=== PATIENT | female | born 1970 | race American Indian/Alaskan Native ===

== ENCOUNTER 2017-03-14 09:04 | Emergency (ER) | payer SELFPAY ==
[2017-03-14 10:17] LABS: Urine Drugs of Abuse Note Disclamer
[2017-03-14 10:35] LABS: Bacteria,Urine 1+ /HPF (Negative); Bilirubin,Urine NEG (Negative); Blood,Urine NEG (Negative); Ketones,Urine 20 mg/dL (Negative); Leukocyte Esterase,Urine NEG (Negative); Mucus,Urine FEW /HPF; Nitrite,Urine NEG (Negative); Urobilinogen,Urine < 2.0 mg/dL (<2.0)
[2017-03-14 10:39] LABS: Basophils % (Auto) 0.4 % (0.0-1.8); Eosinophils % (Auto) 1.3 % (0.0-4.3); Hematocrit 36.2 % (30.3-42.9); Hemoglobin 12.8 gm/dl (10.1-14.3); Mean Corpuscular HGB Conc 35 % (30-34); Mean Corpuscular Hemoglobin 32 pg (28-32); Mean Corpuscular Volume 90 fl (79-97); Platelet Count 276 K/mm3 (140-440); Red Blood Count 4.03 M/mm3 (3.65-5.03); Red Cell Distribution Width 13.9 % (13.2-15.2); White Blood Count 6.3 K/mm3 (4.5-11.0)
[2017-03-14 10:47] LABS: Anion Gap 16 mmol/L; BUN/Creatinine Ratio 9; Blood Urea Nitrogen 8 mg/dL (7-17); Calcium 8.9 mg/dL (8.4-10.2); Carbon Dioxide 25 mmol/L (22-30); Chloride 100.9 mmol/L (98-107); Glucose 94 mg/dL (65-100); Potassium 3.9 mmol/L (3.6-5.0); Sodium 138 mmol/L (137-145)
--- NOTE | 2017-03-14 11:31 | Emergency Department Report ---
HPI - General Chief Complaint: Psych Time Seen by Provider: 03/14/17 11:18 - HPI HPI: Room 9 The patient is a 46-year-old female presenting with a chief complaint of suicidal ideation. The patient stated for one week she has "felt like killing myself." When asked why the patient states she is "going through a lot." Patient's initial plan was to cut her wrists. Patient denies making any attempts to actually harm herself now or in the past. The patient also acknowledges chronic left foot pain from an injury in 2016 and states there has been no change. Location: Mental state Duration: One week Quality: Suicidal Severity: Severe Modifying factors: [see above] Context: [see above] Mode of transportation: Unknown ED Past Medical Hx - Past Medical History Hx Hypertension: Yes Hx Psychiatric Treatment: Yes (depression) - Surgical History Hx Cholecystectomy: Yes Additional Surgical History: cyst removed from right ovary, left oophorectomy. hysterectomy - Family History Family history: no significant - Social History Smoking Status: Never Smoker Substance Use Type: None - Medications Home Medications: Home Medications Medication Instructions Recorded Confirmed Last Taken Type Promethazine [Phenergan TAB] 25 mg PO Q6HR PRN #20 tab 04/21/15 Unknown Rx oxyCODONE /ACETAMINOPHEN [Percocet 1 tab PO Q6HR PRN #20 tablet 04/21/15 Unknown Rx 5/325] Diclofenac Sodium 75 mg PO BID #20 tablet. 10/12/15 Unknown Rx Gabapentin [Neurontin] 100 mg PO Q8HR #30 capsule 06/29/16 Unknown Rx Ibuprofen [Motrin 800 MG tab] 800 mg PO Q8HR PRN #30 tablet 06/29/16 Unknown Rx traMADol [Ultram 50 MG tab] 50 mg PO Q6HR PRN #14 tablet 06/29/16 Unknown Rx ED Review of Systems ROS: Stated complaint: DEPRESSION Other details as noted in HPI Comment: All other systems reviewed and negative Constitutional: denies: chills, fever Eyes: denies: eye pain, eye discharge, vision change ENT: denies: ear pain, throat pain Respiratory: denies: cough, shortness of breath, wheezing Cardiovascular: denies: chest pain, palpitations Endocrine: no symptoms reported Gastrointestinal: denies: abdominal pain, nausea, diarrhea Genitourinary: denies: urgency, dysuria, discharge Musculoskeletal: myalgia Skin: denies: rash, lesions Neurological: denies: headache, weakness, paresthesias Psychiatric: depression, suicidal thoughts Hematological/Lymphatic: denies: easy bleeding, easy bruising Physical Exam - Physical Exam Vital Signs: Vital Signs 03/14/17 03/14/17 03/14/17 09:11 09:25 09:26 Temperature 99.5 F 99.5 F Pulse Rate 89 89 Respiratory 20 20 20 Rate Blood Pressure 125/93 Blood Pressure 125/93 [Left] O2 Sat by Pulse 99 99 99 Oximetry Physical Exam: GENERAL: The patient is well-developed well-nourished female lying on stretcher not appearing to be in acute distress. [] HEENT: Normocephalic. Atraumatic. Extraocular motions are intact. Patient has moist mucous membranes. NECK: Supple. Trachea midline CHEST/LUNGS: Clear to auscultation. There is no respiratory distress noted. HEART/CARDIOVASCULAR: Regular. There is no tachycardia. There is no gallop rub or murmur. ABDOMEN: Abdomen is soft, nontender. Patient has normal bowel sounds. There is no abdominal distention. SKIN: There is no rash. There is no edema. There is no diaphoresis. NEURO: The patient is awake, alert, and oriented. The patient is cooperative. The patient has normal speech MUSCULOSKELETAL: There is no evidence of acute injury. ED Course Vital Signs 03/14/17 03/14/17 03/14/17 09:11 09:25 09:26 Temperature 99.5 F 99.5 F Pulse Rate 89 89 Respiratory 20 20 20 Rate Blood Pressure 125/93 Blood Pressure 125/93 [Left] O2 Sat by Pulse 99 99 99 Oximetry ED Medical Decision Making - Lab Data Result diagrams: 03/14/17 10:16 03/14/17 10:16 Laboratory Tests 03/14/17 03/14/17 03/14/17 09:46 09:46 10:16 WBC RBC Hgb Hct MCV MCH MCHC RDW Plt Count Lymph % (Auto) [place] % (Auto) Eos % (Auto) Baso % (Auto) Lymph # [place] # Eos # Baso # Seg Neutrophils % Seg Neutrophils # Sodium 138 Potassium 3.9 Chloride 100.9 Carbon Dioxide 25 Anion Gap 16 BUN 8 Creatinine 0.9 Estimated GFR > 60 BUN/Creatinine Ratio 9 Glucose 94 Calcium 8.9 Urine Color Yellow Urine Turbidity Clear Urine pH 7.0 Ur Specific [place] 1.013 Urine Protein 100 mg/dl Urine Glucose (UA) Neg Urine Ketones 20 Urine Blood Neg Urine Nitrite Neg Urine Bilirubin Neg Urine Urobilinogen < 2.0 Ur Leukocyte Esterase Neg Urine WBC (Auto) 1.0 Urine RBC (Auto) 1.0 U Epithel Cells (Auto) 8.0 Urine Bacteria (Auto) 1+ Urine Mucus Few Salicylates Urine Opiates Screen Presumptive negative Urine Methadone Screen Presumptive negative Acetaminophen Ur Barbiturates Screen Presumptive negative Ur Phencyclidine Scrn Presumptive negative Ur Amphetamines Screen Presumptive negative U Benzodiazepines Scrn Presumptive negative Urine Cocaine Screen Presumptive negative U Marijuana (THC) Screen Presumptive negative Drugs of Abuse Note Disclamer Plasma/Serum Alcohol 03/14/17 03/14/17 03/14/17 10:16 10:16 10:16 WBC 6.3 RBC 4.03 Hgb 12.8 Hct 36.2 MCV 90 MCH 32 MCHC 35 H RDW 13.9 Plt Count 276 Lymph % (Auto) 34.4 [place] % (Auto) 5.5 Eos % (Auto) 1.3 Baso % (Auto) 0.4 Lymph # 2.2 [place] # 0.4 Eos # 0.1 Baso # 0.0 Seg Neutrophils % 58.4 Seg Neutrophils # 3.7 Sodium Potassium Chloride Carbon Dioxide Anion Gap BUN Creatinine Estimated GFR BUN/Creatinine Ratio Glucose Calcium Urine Color Urine Turbidity Urine pH Ur Specific [place] Urine Protein Urine Glucose (UA) Urine Ketones Urine Blood Urine Nitrite Urine Bilirubin Urine Urobilinogen Ur Leukocyte Esterase Urine WBC (Auto) Urine RBC (Auto) U Epithel Cells (Auto) Urine Bacteria (Auto) Urine Mucus Salicylates < 0.3 L Urine Opiates Screen Urine Methadone Screen Acetaminophen Ur Barbiturates Screen Ur Phencyclidine Scrn Ur Amphetamines Screen U Benzodiazepines Scrn Urine Cocaine Screen U Marijuana (THC) Screen Drugs of Abuse Note Plasma/Serum Alcohol < 0.01 03/14/17 10:16 WBC RBC Hgb Hct MCV MCH MCHC RDW Plt Count Lymph % (Auto) [place] % (Auto) Eos % (Auto) Baso % (Auto) Lymph # [place] # Eos # Baso # Seg Neutrophils % Seg Neutrophils # Sodium Potassium Chloride Carbon Dioxide Anion Gap BUN Creatinine Estimated GFR BUN/Creatinine Ratio Glucose Calcium Urine Color Urine Turbidity Urine pH Ur Specific [place] Urine Protein Urine Glucose (UA) Urine Ketones Urine Blood Urine Nitrite Urine Bilirubin Urine Urobilinogen Ur Leukocyte Esterase Urine WBC (Auto) Urine RBC (Auto) U Epithel Cells (Auto) Urine Bacteria (Auto) Urine Mucus Salicylates Urine Opiates Screen Urine Methadone Screen Acetaminophen < 15.0 Ur Barbiturates Screen Ur Phencyclidine Scrn Ur Amphetamines Screen U Benzodiazepines Scrn Urine Cocaine Screen U Marijuana (THC) Screen Drugs of Abuse Note Plasma/Serum Alcohol - Differential Diagnosis suicidal ideation Critical care attestation.: If time is entered above; I have spent that time in minutes in the direct care of this critically ill patient, excluding procedure time. ED Disposition Clinical Impression: Suicidal ideation Disposition: [id number]/TX-65 PSY HOSP/PSY UNIT Is pt being admited?: No Does the pt Need Aspirin: No Condition: Serious Referrals: PRIMARY CARE [Primary Care Provider] - 3-5 Days Time of Disposition: 11:31 (awaiting acceptance)
[2017-03-14] MEDS ORDERED: MOTRIN PO PRN (11:32)
[2017-03-15 12:26] VITALS: BP 113/76
--- NOTE | 2017-03-15 22:32 | Consultation ---
History of Present Illness - Reason for Consult Reason for consult: SI Medications and Allergies Allergies Allergy/AdvReac Type Severity Reaction Status Date / Time acetaminophen [From Lortab] Allergy Itching Verified 04/21/15 09:03 codeine Allergy Nausea Verified 04/21/15 09:03 hydrocodone bitartrate Allergy Itching Verified 04/21/15 09:03 [From Lortab] shellfish derived Allergy Swelling Verified 04/21/15 09:03 latex AdvReac Rash Verified 04/21/15 09:03 Home Medications Medication Instructions Recorded Confirmed Last Taken Type Promethazine [Phenergan TAB] 25 mg PO Q6HR PRN #20 tab 04/21/15 Unknown Rx oxyCODONE /ACETAMINOPHEN [Percocet 1 tab PO Q6HR PRN #20 tablet 04/21/15 Unknown Rx 5/325] Diclofenac Sodium 75 mg PO BID #20 tablet. 10/12/15 Unknown Rx Gabapentin [Neurontin] 100 mg PO Q8HR #30 capsule 06/29/16 Unknown Rx Ibuprofen [Motrin 800 MG tab] 800 mg PO Q8HR PRN #30 tablet 06/29/16 Unknown Rx traMADol [Ultram 50 MG tab] 50 mg PO Q6HR PRN #14 tablet 06/29/16 Unknown Rx Mental Status Exam - Vital signs Last Vital Signs Temp 98.5 F 03/15/17 10:10 Pulse 88 03/15/17 10:10 Resp 18 03/15/17 14:20 BP 113/76 03/15/17 10:10 Pulse Ox 98 03/15/17 14:20 Results Result Diagrams: 03/14/17 10:16 03/14/17 10:16 All other labs normal. Assessment and Plan Assessment and plan: CHIEF COMPLAINT IN PATIENTS WORDS: HISTORY OF PRESENT ILLNESS: This is a 46-year-old female with no formal PPH who now presents secondary to recent expression of SI. Patient is an employee in the [employer] center and notes expressing SI while breaking down at work. She notes this is associated with her being in chronic pain. PSYCHIATRIC REVIEW OF SYSTEMS: Substance: UDS - Detoxification/Withdrawal: none noted Depression: Withdrawn, isolated, low moods. [place]: no labile moods, not hyperverbal, no flight of ideas Psychosis: no AV, no VH, no paranoia, no grandiosity/erotomania Anxiety/ OCD/ PTSD: denies Suicidality: denies current SI Other Self-Injurious Behavior: none currently, no recent SIB noted Violent/ Aggressive Behavior: none noted CURRENT MEDICATIONS: Per Medication Reconciliation ALLERGIES: acetaminophen, codeine, hydrocodone, shellfish, latex PAST PSYCHIATRIC HISTORY: Inpatient: none Outpatient: has no psychiatrist/therapist Prior Suicide Attempts: unknown Prior Self-Injurious Behaviors: unknown PAST PSYCHIATRIC MEDICATION TRIALS: MEDICAL HISTORY: injury to foot resulting in chronic pain syndrom MENTAL STATUS EXAM: General Appearance: Dressed in hospital gown, in acute distress Sensorium/Consciousness: alert and responding to external stimuli Eye Contact: limited Attitude / Behavior: cooperative, but guarded Psychomotor & Musculoskeletal Activity: WNL Mood: anxious Affect: constricted Speech / Language: normal Thought Processes: organized Thought Content: no SI, no HI Perception: no AV, no VH Orientation: person, place, time, situation Judgment What would you do if you smelled smoke in a crowded movie theater?: fair Insight: fair Intelligence Vocabulary, general fund of knowledge, educational level: Average Capacity of ADLs: Independent STRENGTHS: PSYCHOSOCIAL AND ENVIRONMENTAL STRESSORS: ASSESSMENT: Mood Disorder 2/2 chronic pain syndrome PLAN OF CARE: Complete suicide risk assessment Observe for 24-48 hours to ensure patient remains free of SI Complete suicide risk assessment
== END 2017-03-15 21:38 ==
LOC: ED 09:04 → EEVIPCON 09:04 → ED 03-15 21:38
DX: F32.9 Major depressive disorder, single episode, unspecified (principal); I10 Essential (primary) hypertension
CPT/HCPCS: 36415; 80048; 80307; 81001; 81025; 85025; 99285; G0480; 80320